=== PATIENT | female | born 1970 | race Caucasian/White ===

== ENCOUNTER 2018-02-06 00:38 | Inpatient (IN) | payer BC ==
[2018-02-06 00:41] VITALS: BMI 24.0
[2018-02-06] MEDS ORDERED: Albuterol-Ipratrop 3 mg / 0.5 (3 ml) UD ONE (00:58)
[2018-02-06] MEDS ORDERED: Albuterol-Ipratrop 3 mg / 0.5 (3 ml) UD IH STA (00:58)
[2018-02-06] MEDS ORDERED: Albuterol-Ipratrop 3 mg / 0.5 (3 ml) UD IH SCH (01:00)
--- NOTE | 2018-02-06 01:00 | ED PDOC ---
Arrival/HPI - General Time Seen by Provider: 02/06/18 00:49 Historian: Patient - History of Present Illness Narrative History of Present Illness (Text): 02/06/18 00:59 A 48 year old female, whose past medical history includes asthma, was brought in by EMS to the emergency department for severe asthma. Patient presents to the emergency department complaining of shortness of breath and asthma exacerbation for one day. Patient denies any fever or any other complaints at this time. Time/Duration: 24 hours Symptom Onset: Sudden Symptom Course: Unchanged Activities at Onset: Rest Context: Home Past Medical History - Provider Review Nursing Documentation Reviewed: Yes Family/Social History - Physician Review Nursing Documentation Reviewed: Yes Family/Social History: No Known Family HX Allergies/Home Meds Allergies/Adverse Reactions: Allergies Beef Containing Products Allergy (Verified 02/06/18 00:51) RASH PORK Allergy (Verified 02/06/18 00:51) RASH Home Medications: Home Meds Medication Instructions Recorded Confirmed Albuterol HFA [Ventolin HFA 90 1 puff INH PRN PRN 02/06/18 02/06/18 mcg/actuation (8 g)] Albuterol/Ipratropium [Duoneb 3 1 inh NEB PRN PRN 02/06/18 02/06/18 mg/0.5 mg (3 ml) UD] Review of Systems - Physician Review All systems were reviewed & negative as marked: Yes - Review of Systems Constitutional: absent: Fevers Respiratory: SOB Physical Exam Vital Signs Reviewed: Yes Vital Signs Temp Pulse Resp BP Pulse Ox 02/06/18 04:20 18 95 02/06/18 04:10 87 18 106/68 97 02/06/18 02:10 18 100 02/06/18 01:15 20 95 02/06/18 00:59 97.7 F 82 16 99/56 L 100 Appearance: Positive for: Comfortable Pain Distress: None Mental Status: Positive for: Alert and Oriented X 3 - Systems Exam Head: Present: Atraumatic, Normocephalic Pupils: Present: PERRL Extroacular Muscles: Present: EOMI Conjunctiva: Present: Normal Mouth: Present: Moist Mucous Membranes Neck: Present: Normal Range of Motion Respiratory/Chest: Present: Wheezes Cardiovascular: Present: Regular Rate and Rhythm, Normal S1, S2. No: Murmurs Abdomen: Present: Normal Bowel Sounds. No: Tenderness, Distention, Peritoneal Signs Back: Present: Normal Inspection Upper Extremity: Present: Normal Inspection. No: Cyanosis, Edema Lower Extremity: Present: Normal Inspection. No: Edema Neurological: Present: GCS=15, CN II-XII Intact, Speech Normal Skin: Present: Warm, Dry, Normal Color. No: Rashes Psychiatric: Present: Alert, Oriented x 3, Normal Insight, Normal Concentration Medical Decision Making ED Course and Treatment: 02/06/18 00:58 Impression: A 48 year old female with shortness of breath. Plan: -- EKG -- labs -- Duoneb, Solumedrol -- Reassess and disposition Progress Notes: EKG: Ordered, reviewed, and independently interpreted the EKG. Rate : 96 BPM Rhythm : NSR Interpretation : Nonspecific ST/T segment changes 02/06/18 03:06 Chest X-ray- no active disease, as read by me. case d/w dr cutler accepts case 02/10/18 10:07 - Lab Interpretations Microbiology Results: Microbiology Results 02/06/18 02:40 Blood-Venous Blood Culture - Preliminary NO GROWTH AFTER 4 DAYS 02/06/18 02:20 Blood-Venous Blood Culture - Preliminary NO GROWTH AFTER 4 DAYS 02/06/18 11:15 Urine,Clean Catch Urine Culture - Final No Growth (<1,000 CFU/ML) Lab Results: 02/07/18 06:15 02/06/18 01:14 Lab Results 02/07/18 06:15: WBC 20.0 H D, RBC 4.71, Hgb 12.2, Hct 36.4, MCV 77.3 L, MCH 25.9 , MCHC 33.5, RDW 14.6 H, Plt Count 417, MPV 9.7 02/06/18 02:20: Influenza Typ A,B (EIA) Negative for flu a/b 02/06/18 01:14: Sodium 145, Chloride 105, Potassium 4.0, Carbon Dioxide 27, Anion Gap 17, BUN 13, Creatinine 0.7, Est GFR ( Amer) > 60, Est GFR (Non- Af Amer) > 60, Random Glucose 90, Calcium 10.5, Total Bilirubin 0.4, AST 25, ALT 25, Alkaline Phosphatase 69, Lactate Dehydrogenase 553, Total Creatine Kinase 112, Troponin I < 0.01, Total Protein 8.2, Albumin 4.6, Globulin 3.6, Albumin/Globulin Ratio 1.3 02/06/18 01:14: pO2 29 L, VBG pH 7.21 L, VBG pCO2 73.0 H*, VBG HCO3 29.2 H, VBG Total CO2 31.4 H, VBG O2 Sat (Calc) 54.6, VBG Base Excess -0.6 L, VBG Potassium 3.5 L, Sodium 142.0, Chloride 106.0, Glucose 88, Lactate 1.4, FiO2 21.0, Venous Blood Potassium 3.5 L 02/06/18 01:14: WBC 12.7 H, RBC 5.19, Hgb 13.3, Hct 40.4, MCV 77.8 L, MCH 25.6, MCHC 32.9, RDW 14.6 H, Plt Count 449, MPV 10.1, Gran % 54.5, Lymph % (Auto) 28.6 , [place] % (Auto) 5.1, Eos % (Auto) 11.3 H, Baso % (Auto) 0.5, Gran # 6.94 H, Lymph # (Auto) 3.6 H, [place] # (Auto) 0.7 H, Eos # (Auto) 1.4 H, Baso # (Auto) 0.06 I have reviewed the lab results: Yes - RAD Interpretation Radiology Orders: 02/06/18 02:28 CHEST PORTABLE [RAD] Stat - EKG Interpretation Interpreted by ED Physician: Yes Type: 12 lead EKG - Medication Orders Current Medication Orders: Acetaminophen (Tylenol 325mg Tab) 650 mg PO Q4H PRN PRN Reason: Fever >100.5 F Arformoterol Tartrate (Brovana) 15 mcg IH [id number] JOLANTA Last Admin: 02/10/18 07:22 Dose: 15 mcg Azithromycin (Zithromax) 500 mg PO DAILY JOLANTA Budesonide (Pulmicort Respules) 0.5 mg IH [id number] JOLANTA Last Admin: 02/10/18 07:22 Dose: 0.5 mg Famotidine (Pepcid) 40 mg PO HS JOLANTA Last Admin: 02/09/18 22:27 Dose: 40 mg Guaifenesin/Dextromethorphan (Robitussin Dm) 10 ml PO Q6H PRN PRN Reason: Cough Last Admin: 02/09/18 22:27 Dose: 10 ml Ceftriaxone Sodium (Rocephin 1 Gram Ivpb) 1 gm in 100 mls @ 100 mls/hr IVPB DAILY JOLANTA PRN Reason: Protocol Stop: 02/10/18 10:59 Last Admin: 02/09/18 09:45 Dose: 100 mls/hr eMAR Start Stop Document 02/09/18 09:45 LMN (Rec: 02/09/18 10:58 LMN [id number]) Intravenous Solution Start Date 02/09/18 Start Time 09:45 Levalbuterol HCl (Xopenex) 0.63 mg IH [id number] [facility] Last Admin: 02/10/18 07:22 Dose: 0.63 mg Methylprednisolone (Solu-Medrol) 30 mg IVP Q8H [facility] Last Admin: 02/10/18 08:12 Dose: 30 mg IVP Administration Document 02/10/18 08:12 MCV (Rec: 02/10/18 08:13 MCV [facility] [id number]) Charges for Administration # of IVP Administrations 1 Ondansetron HCl (Zofran Inj) 4 mg IVP Q6H PRN PRN Reason: Nausea/Vomiting Discontinued Medications Albuterol/Ipratropium (Duoneb 3 Mg/0.5 Mg (3 Ml) Ud) 3 ml IH Q15M JOLANTA Albuterol/Ipratropium (Duoneb 3 Mg/0.5 Mg (3 Ml) Ud) 3 ml IH Q15M STA Stop: 02/06/18 00:59 Last Admin: 02/06/18 00:58 Dose: 3 ml Albuterol/Ipratropium (Duoneb 3 Mg/0.5 Mg (3 Ml) Ud) 3 ml IH Q4H PRN PRN Reason: Wheezing Last Admin: 02/06/18 08:42 Dose: 3 ml Arformoterol Tartrate (Brovana) 15 mcg IH [id number] [facility] Last Admin: 02/06/18 13:23 Dose: 15 mcg Sodium Chloride (Sodium Chloride 0.9%) 1,000 mls @ 100 mls/hr IV .Q10H STA Stop: 02/06/18 13:22 Last Admin: 02/06/18 03:39 Dose: 100 mls/hr eMAR Start Stop Document 02/06/18 03:39 AD (Rec: 02/06/18 03:39 AD [id number]) Intravenous Solution Start Date 02/06/18 Start Time 03:39 Sodium Chloride (Sodium Chloride 0.9%) 1,000 mls @ 80 mls/hr IV .[id number] STA Stop: 02/06/18 21:26 Last Admin: 02/06/18 09:29 Dose: 80 mls/hr eMAR Start Stop Document 02/06/18 09:29 AJ (Rec: 02/06/18 09:30 [place] [facility] [id number]) Intravenous Solution Start Date 02/06/18 Start Time 09:30 Azithromycin 500 mg/ Sodium (Chloride) 250 mls @ 250 mls/hr IV DAILY JOLANTA PRN Reason: Protocol Last Admin: 02/06/18 11:00 Dose: 250 mls/hr eMAR Start Stop Document 02/06/18 11:00 AJ (Rec: 02/06/18 11:00 AJ [facility] [id number]) Intravenous Solution Start Date 02/06/18 Start Time 11:00 Azithromycin (Zithromax 500mg In Ns) 500 mg in 250 mls @ 250 mls/hr IVPB DAILY JOLANTA PRN Reason: Protocol Last Admin: 02/09/18 10:58 Dose: 250 mls/hr eMAR Start Stop Document 02/09/18 10:58 LMN (Rec: 02/09/18 10:58 LMN [id number]) Intravenous Solution Start Date 02/09/18 Start Time 10:58 Methylprednisolone (Solu-Medrol) 125 mg IVP ONCE ONE Stop: 02/06/18 00:56 Last Admin: 02/06/18 00:55 Dose: 125 mg IVP Administration Document 02/06/18 00:55 AD (Rec: 02/06/18 01:47 AD [id number]) Charges for Administration # of IVP Administrations 1 Methylprednisolone (Solu-Medrol) 40 mg IVP Q6 [facility] Last Admin: 02/08/18 15:36 Dose: Not Given Non-Admin Reason: Patient Refused Comments: Per MD make dose change - Scribe Statement The provider has reviewed the documentation as recorded by the Irisibtaqueria Dawn Provider Scribe Attestation: All medical record entries made by the Scribe were at my direction and personally dictated by me. I have reviewed the chart and agree that the record accurately reflects my personal performance of the history, physical exam, medical decision making, and the department course for this patient. I have also personally directed, reviewed, and agree with the discharge instructions and disposition. Disposition/Present on Arrival - Present on Arrival Any Indicators Present on Arrival: No - Disposition Have Diagnosis and Disposition been Completed?: Yes Diagnosis: Asthma Disposition: HOSPITALIZED Disposition Time: 03:25 Condition: FAIR
[2018-02-06 01:29] LABS: BASO # 0.06 K/mm3 (0.0-2.0); BASO % 0.5 % (0.0-3.0); EOS # 1.4 (0.0-0.7); EOS % 11.3 % (1.5-5.0); GRAN # 6.94 (1.4-6.5); GRAN % 54.5 % (50.0-68.0); HEMOGLOBIN 13.3 g/dL (12.0-16.0); LYMPH # 3.6 (1.2-3.4); LYMPH % 28.6 % (22.0-35.0); MEAN CELL VOLUME 77.8 fl (80.0-105.0); MEAN CORPUSCULAR HEMOGLOBIN 25.6 pg (25.0-35.0); MEAN CORPUSCULAR HGB CONC 32.9 g/dl (31.0-37.0); MEAN PLATELET VOLUME 10.1 fl (7.0-11.0); MONO # 0.7 (0.1-0.6); MONO % 5.1 % (1.0-6.0); RBC 5.19 10^6/uL (3.5-6.1); RED CELL DISTRIBUTION WIDTH 14.6 % (11.5-14.5); WHITE BLOOD COUNT 12.7 10^3/ul (4.5-11.0)
[2018-02-06 01:31] LABS: VENOUS BLOOD GAS BASE EXCESS -0.6 mmol/L (0.0-2.0); VENOUS BLOOD GAS PO2 29 mm/Hg (30-55); VENOUS BLOOD PH 7.21 (7.32-7.43)
[2018-02-06 01:41] LABS: ALB/GLOB RATIO 1.3 (1.1-1.8); ALBUMIN 4.6 g/dL (3.0-4.8); ALT/SGPT 25 U/L (7-56); AST/SGOT 25 U/L (14-36); BLOOD UREA NITROGEN 13 mg/dL (7-21); CALCIUM 10.5 mg/dL (8.4-10.5); GFR AFRICAN-AMERICAN > 60; GFR NON-AFRICAN AMERICAN > 60
[2018-02-06 01:52] LABS: TROPONIN I < 0.01 ng/mL
[2018-02-06] MEDS ORDERED: Albuterol-Ipratrop 3 mg / 0.5 (3 ml) UD IH PRN (03:23)
[2018-02-06] MEDS ORDERED: Sodium Chloride 0.9% 1,000 ML IV STA ×2 (03:23→08:57)
[2018-02-06] MEDS: MethylPREDNISolone 40 mg Vial IVP SCH ×3 (09:26→17:31)
--- NOTE | 2018-02-06 09:40 | RAD ---
HISTORY: cp COMPARISON: No prior. FINDINGS: LUNGS: No active pulmonary disease. PLEURA: No significant pleural effusion identified, no pneumothorax apparent. CARDIOVASCULAR: Normal. OSSEOUS STRUCTURES: No significant abnormalities. VISUALIZED UPPER ABDOMEN: Normal. OTHER FINDINGS: None. IMPRESSION: No active disease.
[2018-02-06] MEDS ORDERED: Arformoterol 15 mcg/2 ml Inh Sol IH SCH (10:00)
[2018-02-06] MEDS ORDERED: Azithromycin 500 MG in Sodium Chloride 0.9% 250 ML IV SCH (10:30)
[2018-02-06] MEDS: cefTRIAXone 1 gm 1 GM/100 ML BAG IVPB SCH (11:14)
--- NOTE | 2018-02-06 12:21 | CARD ---
APPROVED REPORT EKG Measurement Heart [id number] <Conclusion> Normal sinus rhythm Normal ECG
[2018-02-06] MEDS: Arformoterol 15 mcg/2 ml Inh Sol IH SCH (21:35)
[2018-02-06] MEDS: Budesonide 0.5 mg/2 ml Inhal Susp UD IH SCH (21:35)
[2018-02-06] MEDS: Levalbuterol 0.63 MG/3 ML Inhal Soln UD IH SCH (23:00)
[2018-02-07] MEDS: MethylPREDNISolone 40 mg Vial IVP SCH ×4 (00:27→17:59)
[2018-02-07] MEDS: Levalbuterol 0.63 MG/3 ML Inhal Soln UD IH SCH ×4 (03:05→20:05)
[2018-02-07 06:58] LABS: HEMOGLOBIN 12.2 g/dL (12.0-16.0); MEAN CELL VOLUME 77.3 fl (80.0-105.0); MEAN CORPUSCULAR HEMOGLOBIN 25.9 pg (25.0-35.0); MEAN CORPUSCULAR HGB CONC 33.5 g/dl (31.0-37.0); MEAN PLATELET VOLUME 9.7 fl (7.0-11.0); RBC 4.71 10^6/uL (3.5-6.1); RED CELL DISTRIBUTION WIDTH 14.6 % (11.5-14.5)
[2018-02-07] MEDS: Arformoterol 15 mcg/2 ml Inh Sol IH SCH ×2 (07:20→20:04)
[2018-02-07] MEDS: Budesonide 0.5 mg/2 ml Inhal Susp UD IH SCH ×2 (07:20→20:04)
--- NOTE | 2018-02-07 08:55 | HP ---
DATE OF EXAM: 02/06/2018 HISTORY OF PRESENT ILLNESS: This 48-year-old female was examined at her bedside and this case was reviewed in detail with herself and her nurse, Elvi Prabhakar, registered nurse, at the bedside. The patient presented to the [facility] earlier this morning with a chief complaint of cough, shortness of breath and expiratory wheezing. She apparently has a history of asthma and bronchitis and was brought to the emergency room for a severe asthmatic attack. There, she was evaluated and treated with dual nebulizers and admitted for further evaluation and treatment of the above. According to the patient, she takes Ventolin inhaler as an outpatient as well as Advair 500 - 50 one puff b.i.d. The patient told me she was recently hospitalized at the [facility] approximately 1 month ago for her similar problem and was markedly short of breath during the interview I had with her. The patient states that SHE HAS NO KNOWN ALLERGIES TO MEDICATION, is a nondrinker, nonsmoker, non IV drug misuser. Past surgical history significant for hysterectomy. SHE HAS FOOD ALLERGIES TO BEEF AND PORK, WHICH CAUSE RASH. REVIEW OF SYSTEMS: CONSTITUTIONAL REVIEW: No fever, no chills. HEENT: Head review, no headache, no seizures. Eye review, no change in visual acuity. Ear review, no hearing loss. Throat review, no swallowing difficulty. NECK REVIEW: No stiffness. CARDIAC REVIEW: No knowledge of palpitation or coronary artery disease. PULMONARY: History of asthma. GASTROINTESTINAL: No dyspepsia. No melena. No hematemesis. GENITOURINARY: No dysuria. SKIN: No rash. VASCULAR: No claudication. PSYCHOLOGICAL: Anxiety. NEUROLOGIC: No knowledge of stroke. Emergency room chest x-ray was reviewed. It showed no active pulmonary disease, no infiltrate, no effusion, no pneumothorax. EKG from the emergency room was reviewed. It showed a normal sinus rhythm with nonspecific ST-T wave changes. PHYSICAL EXAMINATION: VITAL SIGNS: Patient was with a temperature of 97.5, respirations 22, pulse 95, blood pressure 119/72 with a pulse ox of 94% room air. HEENT: Head: Normocephalic, atraumatic. Eyes: No icterus. Ears: Clear. Throat: Noninjected. NECK: Supple. HEART: Regular S1, S2. No pathological rubs, murmurs or gallops. LUNGS: With expiratory wheezing throughout all posterior lung [place]. No rales, no rhonchi. ABDOMEN: Soft. EXTREMITIES: No edema. SKIN: Without rash. NEUROLOGICAL: Intact. PSYCHOLOGICAL: Alert and anxious. VASCULAR: Legs warm to touch. LABORATORY DATA: White count 12,700, hemoglobin 13.3, hematocrit 40.4, platelets 149,000. Sodium 145, K 4.0, chloride 105, bicarb 27, BUN 13, creatinine 0.7, random blood sugar 90. Bilirubin 0.4, AST 25, ALT 25, alk phos 69. CPK normal 112. Troponin normal less than 0.01. Influenza A and B serology is negative. IMPRESSION: A 48-year-old female with asthmatic bronchitis with history of ALLERGIES TO PORK AND BEEF with marked shortness of breath, anxiety and expiratory wheezing. PLAN: As discussed with the patient and nursing, will be to order Brovana inhalational therapy q. 12, dual nebulizer therapy q. 4 hours along with Pulmicort inhalational therapy q. 12 and Pepcid 40 mg p.o. at bedtime. She is ordered to have Rocephin 1 g IV q. 24, Zithromax 500 mg IV daily, Zofran 4 mg IV q. 6 hours p.r.n. nausea and vomiting and Solu-Medrol 40 mg IV stat and q. 6 hours. She was given Solu-Medrol 125 mg IV once in the emergency room earlier this morning. She is also ordered to have 0.9 saline at 80 mL/hour. She is ordered to have nasal O2 p.r.n., a heart-healthy soft bland diet and will be scheduled for blood and urine cultures and a CBC in the a.m. Greater than 75 minutes was spent in the care management, review of x-rays, labs, orders and medication and discussion of this patient's case with herself and nursing at bedside. All questions were answered. Malinda Godoy MD [facility]
[2018-02-07] MEDS: cefTRIAXone 1 gm 1 GM/100 ML BAG IVPB SCH (11:55)
[2018-02-07] MEDS: guaiFENesin DM 200 mg-20 mg/10 ml UD PO PRN ×2 (13:34→21:19)
[2018-02-07] MEDS: Azithromycin 500MG/NS 250ml 500 MG/250 ML BAG IVPB SCH (13:34)
[2018-02-08] MEDS: MethylPREDNISolone 40 mg Vial IVP SCH ×5 (00:02→22:53)
[2018-02-08] MEDS: Levalbuterol 0.63 MG/3 ML Inhal Soln UD IH SCH ×4 (02:08→20:20)
[2018-02-08] MEDS: guaiFENesin DM 200 mg-20 mg/10 ml UD PO PRN ×2 (06:12→21:40)
[2018-02-08] MEDS: Budesonide 0.5 mg/2 ml Inhal Susp UD IH SCH ×2 (07:30→20:20)
[2018-02-08] MEDS: Arformoterol 15 mcg/2 ml Inh Sol IH SCH ×2 (07:30→20:20)
[2018-02-08 07:38] LABS: HEMOGLOBIN 11.6 g/dL (12.0-16.0); MEAN CELL VOLUME 76.9 fl (80.0-105.0); MEAN CORPUSCULAR HEMOGLOBIN 25.3 pg (25.0-35.0); MEAN PLATELET VOLUME 10.3 fl (7.0-11.0); RBC 4.58 10^6/uL (3.5-6.1); RED CELL DISTRIBUTION WIDTH 14.8 % (11.5-14.5); WHITE BLOOD COUNT 20.3 10^3/ul (4.5-11.0)
--- NOTE | 2018-02-08 08:29 | PN ---
DATE: 02/07/2018 SUBJECTIVE: This 48-year-old female was examined at her bedside and this case was reviewed in detail with her nurse, Viry Moore. The patient remains short of breath with wheezing; however, she states she feels improved since yesterday. She is complaining of cough and requesting a cough suppressant and is tolerating IV fluids, IV prednisone, and inhalational agents at present. She denies any fever, chills, chest pain, or hemoptysis. PHYSICAL EXAMINATION: VITAL SIGNS: Temperature was 98, respirations 20, pulse 67, blood pressure 109/56 with pulse ox of 95% on room air. HEENT: Head: Normocephalic, atraumatic. Eyes: No icterus. Ears: Clear. Throat: Noninjected. NECK: Supple. HEART: Regular S1 and S2. LUNGS: Rhonchi in the posterior lung burnett with wheezing that clears with coughing. ABDOMEN: Soft. EXTREMITIES: No edema. SKIN: Without rash. NEUROLOGIC Grossly intact. PSYCHOLOGICAL: Alert. VASCULAR: Legs warm to touch. LABORATORY DATA: White count 20,000, hemoglobin 12.2, hematocrit 36.4, platelets 117,000. Sodium 145, K 4.0, chloride 105, bicarbonate 27, BUN 13, creatinine 0.7, random blood sugar 90. Bilirubin 0.4, AST 25, ALT 25, alkaline phosphatase 69, troponin less than 0.01. Influenza A and B negative. Chest x-ray showed no active disease. EKG showed a normal sinus rhythm. IMPRESSION: This is a 48-year-old female with asthmatic bronchitis with active wheezing and need for parenteral treatment with IV steroids, inhalational agents and IV antibiotics. As discussed with patient and nursing, she is scheduled for a CBC in the a.m. to monitor her white blood cell count while on steroids, and of note, her blood and urine cultures showed no growth to date. She will continue on Brovana inhalational agent q.12, Pepcid 40 mg p.o. at bedtime, Pulmicort inhalational therapy q.12, Robitussin DM 10 mL p.o. q.6 hours p.r.n. cough, Rocephin 1 g IV q.24, 0.9 saline at 100 mL. She will continue on IV Solu-Medrol 40 mg IV q.6, Tylenol 650 mg p.o. q. 6 hours p.r.n. pain or temperature greater than 101, Xopenex inhalational therapy 0.63 mg q.6, Zithromax 500 mg IV daily, and Zofran 4 mg IV q.6 hours p.r.n. nausea and vomiting. She was advised to wear 2 L of nasal O2 p.r.n. Continue on heart-healthy diet and she is allowed bathroom privileges. Greater than 35 minutes were spent in the care management, review of labs, orders, and outlining of medications, and discussion of this patient's case with herself and nursing. All questions were answered. Malinda Godoy MD MTDD
[2018-02-08] MEDS: cefTRIAXone 1 gm 1 GM/100 ML BAG IVPB SCH (10:44)
[2018-02-08] MEDS: Azithromycin 500MG/NS 250ml 500 MG/250 ML BAG IVPB SCH (12:57)
--- NOTE | 2018-02-08 20:56 | PN ---
DATE: 02/08/2018 SUBJECTIVE: This 48-year-old female was examined at her bedside. This case was reviewed in detail with her nurse, Hannah, at the bedside. The patient continues to have expiratory wheezing; however, she states she is starting to feel better when compared to admission shortness of breath and cough and congestion. She denies any fever, chills, chest pain, shortness of breath, hemoptysis or hematemesis. PHYSICAL EXAMINATION: VITAL SIGNS: Noted to have a temperature of 97.3, respirations 20, pulse 77 and blood pressure 111/72 with a pulse ox of 96% room air. HEENT: Head: Normocephalic, atraumatic. Eyes: No icterus. Ears: Clear. Throat: Noninjected. NECK: Supple. HEART: Regular S1, S2. LUNGS: With rhonchi in the posterior lung field with occasional expiratory wheezing that cleared with coughing. ABDOMEN: Soft. EXTREMITIES: No edema. SKIN: Without rash. NEUROLOGICAL: Intact. PSYCHOLOGICAL: Anxious. VASCULAR: Legs warm to touch. LABORATORY DATA: White count 20,300, hemoglobin 11.6, hematocrit 35.2, platelets 434,000. Sodium 145, K 4.0, chloride 105, bicarb 27, BUN 13, creatinine 0.7, random blood sugar 90. All liver function testing was normal including bilirubin 0.4, AST 25, ALT 25 and alk phos 69. Influenza A, B serology was negative. Chest x-ray showed no active infiltrate, effusion. There was no effusion, no pneumothorax. IMPRESSION: A 48-year-old female with asthmatic bronchitis, history of longstanding asthma. PLAN: At present, as discussed with the patient and nursing, will be to continue Brovana inhalational therapy every 12, Pepcid 40 mg p.o. at bedtime, Pulmicort inhalational therapy every 12, Robitussin DM 10 mL p.o. every 6 hours p.r.n. cough, Rocephin 1 g IV every 24, Solu-Medrol will continue at 30 mg IV every 8, Tylenol 650 mg p.o. every 4 hours p.r.n. fever or pain, Xopenex inhalational therapy 0.63 mg every 6, Zithromax 500 mg IV daily and Zofran 4 mg IV every 6 hours p.r.n. nausea, vomiting. She is ordered to have nasal O2 p.r.n., a heart healthy soft bland diet, to be out of bed to chair and ambulate with assistance and she will have a repeat CBC in the a.m. along with a basic metabolic panel. To date, urine and blood culture shows no growth and patient will be treated supportively given her improving, but persistent bronchospasms. Greater than 35 minutes was spent in the care of this patient today. Malinda Godoy MD [facility]
[2018-02-09 07:18] LABS: HEMOGLOBIN 11.6 g/dL (12.0-16.0); MEAN CELL VOLUME 76.7 fl (80.0-105.0); MEAN CORPUSCULAR HEMOGLOBIN 25.2 pg (25.0-35.0); MEAN CORPUSCULAR HGB CONC 32.9 g/dl (31.0-37.0); MEAN PLATELET VOLUME 9.7 fl (7.0-11.0); RBC 4.6 10^6/uL (3.5-6.1); RED CELL DISTRIBUTION WIDTH 14.8 % (11.5-14.5); WHITE BLOOD COUNT 16.7 10^3/ul (4.5-11.0)
[2018-02-09 07:44] LABS: BLOOD UREA NITROGEN 15 mg/dL (7-21); GFR AFRICAN-AMERICAN > 60; GFR NON-AFRICAN AMERICAN > 60
[2018-02-09] MEDS: MethylPREDNISolone 40 mg Vial IVP SCH ×3 (08:08→22:29)
[2018-02-09] MEDS: Levalbuterol 0.63 MG/3 ML Inhal Soln UD IH SCH ×3 (08:16→20:27)
[2018-02-09] MEDS: Budesonide 0.5 mg/2 ml Inhal Susp UD IH SCH ×2 (08:16→20:27)
[2018-02-09] MEDS: Arformoterol 15 mcg/2 ml Inh Sol IH SCH ×2 (08:16→20:27)
[2018-02-09] MEDS: cefTRIAXone 1 gm 1 GM/100 ML BAG IVPB SCH (09:45)
[2018-02-09] MEDS: Azithromycin 500MG/NS 250ml 500 MG/250 ML BAG IVPB SCH (10:58)
--- NOTE | 2018-02-09 22:22 | PN ---
DATE: 02/09/2018 SUBJECTIVE: This 48-year-old female was examined at the bedside and the case was reviewed in detail with her nurse, Hannah Chiang, registered nurse. The patient continues to have a cough and expiratory wheezing and is receiving parenteral antibiotics, fluids and IV steroids. She states that she has had no fever, chills, chest pain or hemoptysis or hematemesis. OBJECTIVE: VITAL SIGNS: Temperature was 97.8, respirations 20, pulse 64 and blood pressure 107/59 with a pulse ox of 97%. HEENT: Head: Normocephalic, atraumatic. Eyes: No icterus. Ears: Clear. Throat: Noninjected. NECK: Supple. HEART: Regular S1, S2. LUNGS: With expiratory wheezing in the posterior lungs bilaterally with rhonchi that cleared with coughing. ABDOMEN: Soft. EXTREMITIES: No edema. SKIN: Without rash. NEUROLOGIC: Intact. PSYCHOLOGIC: Alert and cooperative. VASCULAR: Legs warm to touch. LABORATORY DATA: White count 16,700, previously 20,300, hemoglobin 11.6, hematocrit 35.3, platelets 432,000. Sodium 142, K 4.2, chloride 105, bicarb 27, BUN 15, creatinine 0.8, random blood sugar 113. Her liver function testing was normal including bilirubin 0.4, AST 25, ALT 25, alk phos 69. Influenza A and B serologies were negative. IMPRESSION AND PLAN: This is a 48-year-old female with asthmatic bronchitis, clinically improving on treatment of Brovana inhalational therapy q. 12, Pepcid 40 mg p.o. at bedtime, Pulmicort inhalational therapy q. 12, Robitussin DM 10 mL p.o. q.6h. p.r.n. cough, Rocephin 1 g IV q. 24, methylprednisolone 30 mg IV q.8, Xopenex inhalational therapy 0.63 mg q.6, Zithromax 500 mg p.o. daily. The patient is wearing nasal O2 p.r.n. Tolerating heart-healthy bland diet. The patient is ordered to be ambulated out of bed p.r.n. and has an order for a repeat CBC in the a.m. Of note, blood and urine culture showed no growth to date and ultimate plan will be for discharge to home when the patient is medically stable and not in need of nasal O2 and no longer wheezing. Greater than 35 minutes was spent in the care management, review of labs, x-rays, orders, medications, and discussion of this patient with herself and nursing. All questions were answered. Malinda Godoy MD [facility]
[2018-02-09] MEDS: guaiFENesin DM 200 mg-20 mg/10 ml UD PO PRN (22:27)
[2018-02-10] MEDS: Levalbuterol 0.63 MG/3 ML Inhal Soln UD IH SCH ×5 (01:43→21:05)
[2018-02-10 06:50] LABS: HEMOGLOBIN 11.8 g/dL (12.0-16.0); MEAN CELL VOLUME 76.1 fl (80.0-105.0); MEAN CORPUSCULAR HEMOGLOBIN 25.4 pg (25.0-35.0); MEAN CORPUSCULAR HGB CONC 33.3 g/dl (31.0-37.0); MEAN PLATELET VOLUME 9.3 fl (7.0-11.0); RBC 4.65 10^6/uL (3.5-6.1); RED CELL DISTRIBUTION WIDTH 14.4 % (11.5-14.5); WHITE BLOOD COUNT 18.1 10^3/ul (4.5-11.0)
[2018-02-10] MEDS: Arformoterol 15 mcg/2 ml Inh Sol IH SCH ×2 (07:22→21:05)
[2018-02-10] MEDS: Budesonide 0.5 mg/2 ml Inhal Susp UD IH SCH ×2 (07:22→21:05)
[2018-02-10] MEDS: MethylPREDNISolone 40 mg Vial IVP SCH ×4 (08:12→21:20)
[2018-02-10] MEDS: cefTRIAXone 1 gm 1 GM/100 ML BAG IVPB SCH (10:22)
--- NOTE | 2018-02-11 00:03 | PN ---
DATE: 02/10/2018 SUBJECTIVE: This 48-year-old female was examined at her bedside. Her case was reviewed in detail with nursing and the patient at present is tolerating diet, IV antibiotics, IV steroids, and inhalational agent. She denies fever or chills and states she now has a cough productive of yellowish sputum. PHYSICAL EXAMINATION: VITAL SIGNS: Temperature was 97.8, respirations 20, pulse 56, blood pressure 90/54 with a pulse ox of 97% on room air. HEENT: Head: Normocephalic, atraumatic. Eyes: No icterus. Ears: Clear. Throat: Noninjected. NECK: Supple. HEART: Regular S1, S2. LUNGS: Occasional rhonchi, clearing with coughing. No wheezing. ABDOMEN: Soft. EXTREMITIES: No edema. SKIN: Without rash. NEUROLOGIC: Intact. PSYCHOLOGIC: Alert. VASCULAR: Legs warm to touch. LABORATORY DATA: White count 18,100, previously 20,300, hemoglobin 11.8, hematocrit 35.4, platelets 412,000. Sodium 142, K 4.2, chloride 105, bicarb 27, BUN 15, creatinine 0.8, random blood sugar 113. Influenza A, B serologies are negative. Chest x-ray showed no active infiltrate, pneumonia or pneumothorax. IMPRESSION: This is a 48-year-old female admitted with asthmatic bronchitis, who is receiving IV antibiotics, IV steroids and inhalational agents with leukocytosis in the setting of parenteral steroids and now with improvement in expiratory wheezing. PLAN: As discussed with the patient, will be to order a repeat CBC for the a.m. She continues on Brovana inhalational agent every 12, Pepcid 40 mg p.o. at bedtime, Pulmicort inhalational every 12, Robitussin DM 10 mL p.o. every 6 hours p.r.n. cough, Solu-Medrol will be decreased to 20 mg IV every 12 and plans will be to switch her to a Solu-Medrol Dosepak in a.m. if expiratory wheezing remains absent. She continues on Xopenex inhalational therapy 0.63 mg inhalational every 6, Zithromax 500 mg p.o. daily, and Zofran 4 mg p.o. every 6 hours p.r.n. nausea, vomiting. She is encouraged to ambulate with assistance. She tolerates heart-healthy diet and ultimate plan will be for discharge to home when medically stable. Greater than 35 minutes was spent in the care management, review of labs, orders, x-rays and discussion of this patient's progress with her in nursing today. All questions were answered. Malinda Godoy MD [id number]
[2018-02-11] MEDS: Levalbuterol 0.63 MG/3 ML Inhal Soln UD IH SCH ×3 (02:15→13:46)
[2018-02-11 07:33] LABS: HEMOGLOBIN 11.8 g/dL (12.0-16.0); MEAN CORPUSCULAR HEMOGLOBIN 25.3 pg (25.0-35.0); MEAN CORPUSCULAR HGB CONC 32.9 g/dl (31.0-37.0); MEAN PLATELET VOLUME 9.8 fl (7.0-11.0); RBC 4.66 10^6/uL (3.5-6.1); RED CELL DISTRIBUTION WIDTH 14.4 % (11.5-14.5); WHITE BLOOD COUNT 14.8 10^3/ul (4.5-11.0)
[2018-02-11] MEDS: Arformoterol 15 mcg/2 ml Inh Sol IH SCH (07:43)
[2018-02-11] MEDS: Budesonide 0.5 mg/2 ml Inhal Susp UD IH SCH (07:43)
[2018-02-11] MEDS: MethylPREDNISolone 40 mg Vial IVP SCH (09:23)
[2018-02-11 09:44] VITALS: BP 104/65; PULSE 56; RESP 20; TEMP 97.8; O2SAT 97
--- NOTE | 2018-02-12 07:55 | DS ---
DATE: 02/11/2018 FINAL DIAGNOSIS: Asthmatic bronchitis, resolved. DISPOSITION: Home. DISCHARGE MEDICATIONS: Zithromax 500 mg p.o. daily #3, Medrol Dosepak #1, Albuterol inhaler 1 puff q.6h. p.r.n. shortness of breath, Advair 500-50 1 puff b.i.d. FOLLOWUP: Office followup in 1 week. SUMMARY: This 48-year-old female was admitted to [facility] with asthmatic bronchitis and respiratory insufficiency with cough, congestion and expiratory wheezing. The patient was treated with parenteral antibiotics including IV Rocephin and IV Zithromax as well as IV steroid taper and inhalational therapy with Brovana, Pulmicort and Xopenex inhalational therapy. At the time of discharge, the patient was independent in ambulation, without shortness of breath and no active wheezing. Temperature was 97.8, respirations 20, pulse 56 and blood pressure 104/65 with a pulse ox of 97% on room air. White count was 14,800 secondary to IV steroids, hemoglobin was 11.8, hematocrit 35.9 and platelets 120,000. Blood and urine cultures showed no growth. Sodium 142, K 4.2, chloride 105, bicarb 27, BUN 15, creatinine 0.8, random blood sugar 113. All liver function testing was normal including bilirubin 0.4, AST 25, ALT 25, alk phos 69. Influenza A, B serologies were negative. Chest x-ray was reviewed and showed no active infiltrate, no pneumonia, no pneumothorax, and no congestive heart failure. EKG showed normal sinus rhythm. The patient is discharged to home, will return to work on February 13, and has an office appointment in my office within 1 week, and has been advised for any change in signs and symptoms to present directly to the [facility] ER. Greater than 35 minutes was spent in the care management, review of labs, orders, x-rays and medication for this patient today. All questions were answered and reviewed with her nurse, Stephanie Beckford, registered nurse. Malinda Godoy MD VIDHI
== END 2018-02-11 17:13 | disposition home or self-care (01) | DRG 203 ==
LOC: ED 00:38 → ERH 03:23 → 5RNO 04:26 → OBSVTOIN 02-07 11:59
PROVIDERS: ADMIT Internal Medicine; ATTEND Internal Medicine
DX: J45.901 Unspecified asthma with (acute) exacerbation (principal); D72.829 Elevated white blood cell count, unspecified; T38.0X5A Adverse effect of glucocorticoids and synthetic analogues, initial encounter; Z90.710 Acquired absence of both cervix and uterus; Z91.018 Allergy to other foods

== ENCOUNTER 2018-11-16 15:24 | Emergency (ER) | payer BC ==
[2018-11-16 15:24] VITALS: BMI 24.0
[2018-11-16 16:27] VITALS: RESP 18
--- NOTE | 2018-11-16 16:27 | ED PDOC ---
Arrival/HPI - General Time Seen by Provider: 11/16/18 15:34 Historian: Patient - History of Present Illness Narrative History of Present Illness (Text): 11/16/18 16:23 48 year old female, with past medical history of asthma and bronchitis, presents to the ED complaining of flu-like symptoms since 2 days. Patient informs subjective fever, productive cough w/ brown phlegm, and headache since past 2 days with intermittent improvement to symptoms after taking ibuprofen. Patient additionally reports chest discomfort while coughing but denies any other somatic complaints. Patient denies any dizziness, shortness of breath, dyspnea on exertion, abdominal pain, nausea, vomiting, diarrhea, neck pain, or any other complaints. Patient denies any recent apparent sick contact. Time/Duration: < week Symptom Onset: Gradual Symptom Course: Unchanged Activities at Onset: Light Context: Home Past Medical History - Provider Review Nursing Documentation Reviewed: Yes - Cardiac Hx Cardiac Disorders: No - Pulmonary Hx Asthma: Yes - Neurological Hx Neurological Disorder: No - HEENT Hx HEENT Disorder: No - Renal Hx Renal Disorder: No - Endocrine/Metabolic Hx Endocrine Disorders: No - Hematological/Oncological Hx Blood Disorders: No - Integumentary Hx Dermatological Disorder: No - Musculoskeletal/Rheumatological Hx Falls: No - Gastrointestinal Hx Gastrointestinal Disorders: No - Genitourinary/Gynecological Hx Genitourinary Disorders: No - Psychiatric Hx Psychophysiologic Disorder: No Hx Substance Use: No - Surgical History Hx Hysterectomy: Yes Other/Comment: left knee surgery, hernia repair, - Anesthesia Hx Anesthesia: No Family/Social History - Physician Review Nursing Documentation Reviewed: Yes Family/Social History: Unknown Family HX Smoking Status: Never Smoked Hx Alcohol Use: No Hx Substance Use: No Allergies/Home Meds Allergies/Adverse Reactions: Allergies Beef Containing Products Allergy (Verified 02/06/18 00:51) RASH PORK Allergy (Verified 02/06/18 00:51) RASH Home Medications: Home Meds Medication Instructions Recorded Confirmed Albuterol HFA [Ventolin HFA 90 1 puff INH PRN PRN 02/06/18 02/06/18 mcg/actuation (8 g)] Albuterol/Ipratropium [Duoneb 3 1 inh NEB PRN PRN 02/06/18 02/06/18 mg/0.5 mg (3 ml) UD] Review of Systems - Physician Review All systems were reviewed & negative as marked: Yes - Review of Systems Constitutional: Fevers Eyes: absent: Vision Changes Respiratory: Cough, Sputum. absent: SOB Cardiovascular: Chest Pain Gastrointestinal: absent: Abdominal Pain, Diarrhea, Nausea, Vomiting Genitourinary Female: absent: Dysuria, Urine Output Changes Musculoskeletal: Myalgias. absent: Neck Pain Neurological: Headache. absent: Dizziness Physical Exam - Physical Exam Narrative Physical Exam (Text): 11/16/18 16:27 Gen: VS reviewed, alert, well developed, well nourished, nontoxic, mild distress. ENT: normal pharynx. Eye: EOMI, PERRL. Neck: no JVD, supple, no adenopathy. CV: regular rate, regular rhythm, no rubs, no murmur, no gallops, S1, S2, pulses equal and strong. Pulm: no distress, scant expiratory wheeze bilaterally, good air exchange bilaterally Abd: soft, nontender, no guarding, no rebound, no rigidity, normal bowel sounds. Ext: no edema. Skin: good color, no rash, no cyanosis. Psych: responds appropriately to questions, normal affect. Neuro: oriented x 3, CN2-12 intact grossly, motor intact, sensation intact. Vital Signs Reviewed: Yes Temperature: Afebrile Blood Pressure: Normal Pulse: Regular Respiratory Rate: Normal Appearance: Positive for: Well-Appearing, Non-Toxic, Comfortable Pain Distress: Mild Mental Status: Positive for: Alert and Oriented X 3 Medical Decision Making ED Course and Treatment: 11/16/18 16:28 Impression: 48 year old female presents to the ED complaining of flu-like symptoms. Plan: -- Chest X-ray -- Rapid flue -- Reassess and disposition Prior Visits: Notes and results from previous visits were reviewed. Progress Notes: 11/16/18 16:20 Patient was offered nebulizer treatments but refused. Agrees with Chest X-ray and rapid flu test. 11/16/18 18:48 patient has symptoms typical for influenza, despite negative test result, with the patient's hx of asthma, will empirically tx for flu. patient has nebulizer machine at home. will rx albuterol nebs solution. patient remained stable throughout ED course and appears stable for dc. ddx including but not limited to PE however unlikely based on the patient's clin icl presentation. 11/16/18 18:51 - Scribe Statement The provider has reviewed the documentation as recorded by the Scribe Lindsay Haro. All medical record entries made by the Irisibe were at my direction and personally dictated by me. I have reviewed the chart and agree that the record accurately reflects my personal performance of the history, physical exam, medical decision making, and the department course for this patient. I have also personally directed, reviewed, and agree with the discharge instructions and disposition. Disposition/Present on Arrival - Present on Arrival Any Indicators Present on Arrival: No History of DVT/PE: No History of Uncontrolled Diabetes: No Urinary Catheter: No History Surgical Site Infection Following: None - Disposition Have Diagnosis and Disposition been Completed?: Yes Diagnosis: Viral syndrome Disposition: HOME/ ROUTINE Disposition Time: 18:50 Patient Plan: Discharge Condition: STABLE Discharge Instructions (ExitCare): Viral Syndrome (DC), Flu Additional Instructions: stay well hydrated (water). return for any new or worsening symptoms. use the nebulizer every 4 hours as needed for shortness or breath or wheezing. Prescriptions: Albuterol 0.5% [Albuterol 0.5% Inhal Rosalinda (2.5 mg/0.5 ml) UD] 0.25 ml IH Q4H #1 neb Oseltamivir Phosphate [Tamiflu] 75 mg PO BID 5 Days #10 capsule Pseudoephedrine [Sudafed Oral Syrup] 30 mg PO QID #20 dose Forms: WORK NOTE
--- NOTE | 2018-11-16 18:45 | RAD ---
Date of service: 11/16/2018 HISTORY: Cough, pneumonia COMPARISON: 02/06/2018. TECHNIQUE: Chest PA and lateral FINDINGS: LUNGS: No active pulmonary disease. PLEURA: No significant pleural effusion identified. No pneumothorax apparent. CARDIOVASCULAR: No aortic atherosclerotic calcification present. Normal cardiac size. No pulmonary vascular congestion. OSSEOUS STRUCTURES: No significant abnormalities. VISUALIZED UPPER ABDOMEN: Normal. OTHER FINDINGS: None. IMPRESSION: No active disease. No significant interval change compared to the prior examination(s).
[2018-11-16 19:27] VITALS: BP 104/64; PULSE 88; TEMP 98.4; O2SAT 95
== END 2018-11-16 19:25 | disposition home or self-care (01) ==
LOC: ED 15:24
DX: B34.9 Viral infection, unspecified (principal)